=== PATIENT | male | born 1940 | race Caucasian/White ===

== ENCOUNTER 2017-04-03 17:01 | Inpatient (IN) | payer MEDICARE, OTHER ==
[2017-04-03] MEDS: PANTOPRAZOLE 40 MG INJ IV (17:39)
[2017-04-03] MEDS: ONDANSETRON 4 MG INJ IV ×2 (17:39→23:07)
[2017-04-03 17:44] LABS: ADD MAN DIFF? NO
[2017-04-03 17:47] LABS: WHITE BLOOD COUNT 12.1 10^3/ul (4.8-10.8)
[2017-04-03 17:47] LABS: BASOPHILS % 0.3 % (0.0-2.0); EOSINOPHILS % 0.2 % (0.0-7.0); HEMATOCRIT 33.9 % (42.0-52.0); HEMOGLOBIN 11.1 g/dl (14.0-18.0); LYMPHOCYTES # 2.8 10^3/ul (0.8-2.9); LYMPHOCYTES % 23.3 % (15.0-51.0); MEAN CORPUSCULAR HEMOGLOBIN 28.7 pg (29.0-33.0); MEAN CORPUSCULAR HGB CONC 32.7 g/dl (32.0-37.0); MEAN CORPUSCULAR VOLUME 87.6 fl (82.0-101.0); MONOCYTE # 0.7 10^3/ul (0.3-0.9); MONOCYTES % 6.1 % (0.0-11.0); NEUTROPHIL # 8.4 10^3/ul (1.6-7.5); NEUTROPHILS % 69.5 % (39.0-77.0); PLATELET COUNT 242 10^3/UL (140-415); RED BLOOD COUNT 3.87 10^6/ul (4.70-6.10); RED CELL DISTRIBUTION WIDTH 12.8 % (11.5-14.5)
[2017-04-03 18:06] LABS: INR 1.07; PT RATIO 1.1
[2017-04-03 18:07] LABS: PARTIAL THROMBOPLASTIN TIME 28.7 Sec (25.0-35.0)
[2017-04-03 18:08] LABS: ALANINE AMINOTRANSFERASE 34 IU/L (13-69); ALBUMIN 3.5 g/dl (3.3-4.9); ALBUMIN/GLOBULIN RATIO 1.34; ALKALINE PHOSPHATASE 41 IU/L (42-121); ANION GAP 18 (8-16); ASPARTATE AMINO TRANSFERASE 18 IU/L (15-46); BILIRUBIN,INDIRECT 0.2 mg/dl (0-1.1); BILIRUBIN,TOTAL 0.2 mg/dl (0.2-1.3); BLOOD UREA NITROGEN 39 mg/dl (7-20); CALCIUM 8.7 mg/dl (8.4-10.2); CARBON DIOXIDE 24 mmol/L (21-31); CHLORIDE 101 mmol/L (97-110); CREATININE 0.83 mg/dl (0.61-1.24); GLUCOSE 252 mg/dl (70-220); POTASSIUM 4.7 mmol/L (3.5-5.1); SODIUM 138 mmol/L (135-144); TOTAL PROTEIN 6.1 g/dl (6.1-8.1)
[2017-04-03 18:20] LABS: TROPONIN-I < 0.012 ng/ml (0.00-0.12)
[2017-04-03] MEDS: SOD CHLORIDE 0.9% 1,000 ML IV ×2 (18:29→22:41)
[2017-04-03] MEDS: morphine 2 MG INJ IV (21:30)
[2017-04-03 21:48] LABS: HEMATOCRIT 23.5 % (42.0-52.0); HEMOGLOBIN 8.1 g/dl (14.0-18.0)
[2017-04-03] MEDS: IOHEXOL 300MG/ML 150 ML BTL (22:36)
[2017-04-03] MEDS: SOD CHLORIDE 0.9% 100 ML (22:36)
[2017-04-03] MEDS: PANTOPRAZOLE IV 80 MG in SOD CHLORIDE 0.9% 100 ML IVPB (22:42)
[2017-04-03 22:43] LABS: HEMATOCRIT 23.1 % (42.0-52.0); HEMOGLOBIN 7.6 g/dl (14.0-18.0)
[2017-04-03] MEDS ORDERED: ALBUTEROL/IPRATROPIUM (NEB) 3 ML AMP NEB (23:00)
[2017-04-03] MEDS ORDERED: ONDANSETRON 4 MG INJ IV (23:00)
[2017-04-03] MEDS: PANTOPRAZOLE IV 80 MG in SOD CHLORIDE 0.9% 100 ML IV (23:02)
[2017-04-03] MEDS: HYDROmorphONE 0.5 MG/0.5 ML SYG IV (23:07)
[2017-04-03 23:47] LABS: ADD MAN DIFF? NO
[2017-04-03 23:50] LABS: WHITE BLOOD COUNT 15.2 10^3/ul (4.8-10.8)
[2017-04-03 23:50] LABS: BASOPHILS % 0.1 % (0.0-2.0); HEMATOCRIT 23.7 % (42.0-52.0); LYMPHOCYTES # 2.6 10^3/ul (0.8-2.9); LYMPHOCYTES % 16.8 % (15.0-51.0); MEAN CORPUSCULAR HEMOGLOBIN 29.7 pg (29.0-33.0); MEAN CORPUSCULAR HGB CONC 33.8 g/dl (32.0-37.0); MEAN CORPUSCULAR VOLUME 88.1 fl (82.0-101.0); MEAN PLATELET VOLUME 10.1 fl (7.4-10.4); MONOCYTE # 0.9 10^3/ul (0.3-0.9); MONOCYTES % 5.7 % (0.0-11.0); NEUTROPHIL # 11.6 10^3/ul (1.6-7.5); NEUTROPHILS % 76.7 % (39.0-77.0); PLATELET COUNT 221 10^3/UL (140-415); RED BLOOD COUNT 2.69 10^6/ul (4.70-6.10)
[2017-04-04 00:24] LABS: INR 1.23; PROTIME 15.7 Sec (11.9-14.9); PT RATIO 1.2
[2017-04-04 00:25] LABS: PARTIAL THROMBOPLASTIN TIME 30.1 Sec (25.0-35.0)
[2017-04-04] MEDS: SOD CHLORIDE 0.9% 1,000 ML IV ×2 (01:01→06:55)
[2017-04-04] MEDS ORDERED: METOCLOPRAMIDE 10 MG INJ IV (01:30)
[2017-04-04 02:27] LABS: HEMATOCRIT 28.8 % (42.0-52.0); HEMOGLOBIN 9.4 g/dl (14.0-18.0)
[2017-04-04 04:13] LABS: HEMATOCRIT 25.4 % (42.0-52.0); HEMOGLOBIN 8.8 g/dl (14.0-18.0)
[2017-04-04 04:42] LABS: LACTIC ACID 3.6 mmol/L (0.5-2.0)
[2017-04-04] MEDS ORDERED: GLUCOSE GEL 15 GRAM TUBE PO ×2 (05:00)
[2017-04-04] MEDS ORDERED: DEXTROSE 50% 50 ML SYRINGE IV ×2 (05:00)
[2017-04-04] MEDS ORDERED: GLUCOSE GEL 15 GRAM TUBE BUCCAL (05:00)
[2017-04-04] MEDS ORDERED: GLUCAGON 1 MG INJ IM (05:00)
[2017-04-04] MEDS: INSULIN ASPART [NOVOLOG] 3 ML PEN SC ×6 (05:15→20:36)
[2017-04-04] MEDS: PHYTONADIONE 10 MG/ML INJ IM (05:17)
[2017-04-04 07:16] LABS: WHITE BLOOD COUNT 27.1 10^3/ul (4.8-10.8)
[2017-04-04 07:16] LABS: ABNORMAL IP MESSAGE 1; HEMATOCRIT 24.4 % (42.0-52.0); HEMOGLOBIN 8.2 g/dl (14.0-18.0); MEAN CORPUSCULAR HEMOGLOBIN 29.3 pg (29.0-33.0); MEAN CORPUSCULAR HGB CONC 33.6 g/dl (32.0-37.0); MEAN CORPUSCULAR VOLUME 87.1 fl (82.0-101.0); PLATELET COUNT 200 10^3/UL (140-415); POSITIVE DIFF @See below; RED CELL DISTRIBUTION WIDTH 14.4 % (11.5-14.5)
[2017-04-04 07:19] LABS: ADD MAN DIFF? YES
[2017-04-04 07:43] LABS: INR 1.22; PARTIAL THROMBOPLASTIN TIME 28.5 Sec (25.0-35.0); PROTIME 15.6 Sec (11.9-14.9); PT RATIO 1.2
[2017-04-04 07:58] LABS: LACTIC ACID 4.5 mmol/L (0.5-2.0)
[2017-04-04 08:23] LABS: ANISOCYTOSIS 1+ (0-0); BAND NEUTROPHILS #M 2.1 10^3/ul (0.0-0.6); BAND NEUTROPHILS % (M) 8 % (0-4); BURR CELLS 1+ (0-0); LYMPHOCYTES #M 2.1 10^3/ul (0.8-2.9); LYMPHOCYTES % (M) 8 % (15-51); MICROCYTOSIS 1+ (0-0); MONOCYTE #M 2.1 10^3/ul (0.3-0.9); MONOCYTES % (M) 8 % (0-11); PLATELET ESTIMATE NORMAL; POIKILOCYTOSIS 1+ (0-0); SEG NEUT #M 21.2 10^3/ul (1.7-7.5); SEGMENTED NEUTROPHILS (M) % 76 % (39-77); SMUDGE%M 10 % (0-0)
[2017-04-04] MEDS: PANTOPRAZOLE IV 80 MG in SOD CHLORIDE 0.9% 100 ML IV ×3 (08:37→19:02)
[2017-04-04 10:54] LABS: ADD UMIC NO; UR ASCORBIC ACID NEGATIVE (NEGATIVE); UR BILIRUBIN (Dip) NEGATIVE (NEGATIVE); UR BLOOD (Dip) NEGATIVE (NEGATIVE); UR CLARITY CLEAR (CLEAR); UR COLOR YELLOW (YELLOW); UR GLUCOSE (Dip) 3+ mg/dL (NEGATIVE); UR KETONES (Dip) TRACE mg/dL (NEGATIVE); UR LEUKOCYTE ESTERASE (Dip) NEGATIVE Leu/ul (NEGATIVE); UR NITRITE (Dip) NEGATIVE (NEGATIVE); UR SPECIFIC GRAVITY (Dip) 1.044 (1.003-1.030); UR TOTAL PROTEIN (Dip) NEGATIVE (NEGATIVE); UR UROBILINOGEN (Dip) NEGATIVE (NEGATIVE)
[2017-04-04 11:11] LABS: HEMOGLOBIN 6.8 g/dl (14.0-18.0)
[2017-04-04 11:26] LABS: LACTIC ACID 6.3 mmol/L (0.5-2.0)
[2017-04-04] MEDS: morphine 2 MG INJ IV (12:07)
[2017-04-04] MEDS: INSULIN GLARGINE [LANtus] 3 ML PEN SC (14:07)
[2017-04-04 18:59] LABS: HEMATOCRIT 25.2 % (42.0-52.0); HEMOGLOBIN 8.9 g/dl (14.0-18.0)
[2017-04-04] MEDS: FENTAnyl 50 MCG/ML VIAL (20:11)
[2017-04-04] MEDS: MIDAZOLAM 1 MG/ML 2 ML INJ (20:11)
[2017-04-04] MEDS: ETOMIDATE 20 MG INJ (20:12)
[2017-04-04] MEDS: METOCLOPRAMIDE 10 MG INJ IV ×2 (21:37→23:48)
[2017-04-04 22:24] LABS: HEMATOCRIT 23.9 % (42.0-52.0); HEMOGLOBIN 8.2 g/dl (14.0-18.0)
[2017-04-05] MEDS: INSULIN ASPART [NOVOLOG] 3 ML PEN SC ×6 (01:19→23:01)
[2017-04-05 01:49] LABS: PHOSPHORUS 3.5 mg/dl (2.5-4.9)
[2017-04-05] MEDS: ACCU-CHEK XX (02:04)
[2017-04-05] MEDS: SOD CHLORIDE 0.9% 1,000 ML IV ×2 (02:07→23:04)
[2017-04-05 06:13] LABS: HEMATOCRIT 19.1 % (42.0-52.0)
[2017-04-05] MEDS: PANTOPRAZOLE IV 80 MG in SOD CHLORIDE 0.9% 100 ML IV ×3 (06:31→23:04)
[2017-04-05 06:37] LABS: MAGNESIUM 1.7 mg/dl (1.7-2.5)
[2017-04-05] MEDS: METOCLOPRAMIDE 10 MG INJ IV ×3 (07:03→18:17)
[2017-04-05 07:16] LABS: HEMOGLOBIN 6.8 g/dl (14.0-18.0)
[2017-04-05 07:56] LABS: IMMEDIATE SPIN CROSSMATCH 1 5
[2017-04-05 11:39] LABS: IMMEDIATE SPIN CROSSMATCH 1 4
[2017-04-05 13:44] LABS: TYPE AND SCREEN 1
[2017-04-05] MEDS: FUROSEMIDE 20 MG INJ IV (18:17)
[2017-04-05 19:07] LABS: ABNORMAL IP MESSAGE 1; HEMATOCRIT 25.3 % (42.0-52.0); HEMOGLOBIN 8.8 g/dl (14.0-18.0); MEAN CORPUSCULAR HEMOGLOBIN 30.2 pg (29.0-33.0); MEAN CORPUSCULAR HGB CONC 34.8 g/dl (32.0-37.0); MEAN CORPUSCULAR VOLUME 86.9 fl (82.0-101.0); MEAN PLATELET VOLUME 9.8 fl (7.4-10.4); NUCLEATED RED BLOOD CELLS% 0.4 /100WBC (0.0-0.0); PLATELET COUNT 80 10^3/UL (140-415); POSITIVE DIFF @See below; RED BLOOD COUNT 2.91 10^6/ul (4.70-6.10); RED CELL DISTRIBUTION WIDTH 14.4 % (11.5-14.5)
[2017-04-05 19:24] LABS: ANION GAP 8 (8-16); BLOOD UREA NITROGEN 39 mg/dl (7-20); CALCIUM 7.5 mg/dl (8.4-10.2); CARBON DIOXIDE 25 mmol/L (21-31); CHLORIDE 109 mmol/L (97-110); CREATININE 0.91 mg/dl (0.61-1.24); GLUCOSE 113 mg/dl (70-220); MAGNESIUM 1.7 mg/dl (1.7-2.5); PHOSPHORUS 2.2 mg/dl (2.5-4.9); POTASSIUM 3.2 mmol/L (3.5-5.1); SODIUM 139 mmol/L (135-144)
[2017-04-05 19:30] LABS: ADD MAN DIFF? YES
[2017-04-05 19:39] LABS: BASOPHIL #M 0.1 10^3/ul (0.0-0.0); BASOPHILS % (M) 1 % (0-2); GIANT THROMBO% (M) 1 % (0-0); LYMPHOCYTES #M 0.6 10^3/ul (0.8-2.9); LYMPHOCYTES % (M) 5 % (15-51); MICROCYTOSIS 1+ (0-0); MONOCYTE #M 0.4 10^3/ul (0.3-0.9); MONOCYTES % (M) 4 % (0-11); PLATELET MORPHOLOGY COMMENT @See below; SEGMENTED NEUTROPHILS (M) % 90 % (39-77)
[2017-04-05] MEDS: POTASSIUM CHLORIDE (SR) 20 MEQ TAB PO (21:11)
[2017-04-05] MEDS: MAGNESIUM SULFATE 2 GM/50 ML 50 ML IVPB (22:32)
[2017-04-05] MEDS: CALCIUM GLUCONATE 10% 1 GM in DEXTROSE 5% 100 ML IVPB (22:32)
[2017-04-05] MEDS: POTASSIUM PHOSPHATE 15 MM in SOD CHLORIDE 0.9% 250 ML IVPB (22:33)
[2017-04-05 23:18] LABS: HEMATOCRIT 24.9 % (42.0-52.0); HEMOGLOBIN 8.9 g/dl (14.0-18.0)
[2017-04-06] MEDS: POTASSIUM CHLORIDE (SR) 20 MEQ TAB PO (00:30)
[2017-04-06] MEDS: INSULIN ASPART [NOVOLOG] 3 ML PEN SC ×5 (01:00→17:00)
[2017-04-06] MEDS: ACCU-CHEK XX (02:00)
[2017-04-06] MEDS: METOCLOPRAMIDE 10 MG INJ IV ×4 (04:02→20:33)
[2017-04-06 04:05] LABS: ADD MAN DIFF? NO
[2017-04-06 04:10] LABS: WHITE BLOOD COUNT 10.9 10^3/ul (4.8-10.8)
[2017-04-06 04:10] LABS: ABNORMAL IP MESSAGE 1; BASOPHIL # 0.1 10^3/ul (0.0-0.1); BASOPHILS % 0.6 % (0.0-2.0); EOSINOPHILS # 0.4 10^3/ul (0.0-0.5); EOSINOPHILS % 3.6 % (0.0-7.0); HEMATOCRIT 24.3 % (42.0-52.0); HEMOGLOBIN 8.5 g/dl (14.0-18.0); LYMPHOCYTES # 1.9 10^3/ul (0.8-2.9); LYMPHOCYTES % 17.4 % (15.0-51.0); MEAN CORPUSCULAR HEMOGLOBIN 30.4 pg (29.0-33.0); MEAN CORPUSCULAR VOLUME 86.8 fl (82.0-101.0); MEAN PLATELET VOLUME 9.9 fl (7.4-10.4); MONOCYTES % 9.4 % (0.0-11.0); NEUTROPHIL # 7.3 10^3/ul (1.6-7.5); NEUTROPHILS % 66.9 % (39.0-77.0); NUCLEATED RED BLOOD CELLS # 0.1 10^3/ul (0.0-0.0); NUCLEATED RED BLOOD CELLS% 0.6 /100WBC (0.0-0.0); PLATELET COUNT 93 10^3/UL (140-415); POSITIVE DIFF @See below; RED CELL DISTRIBUTION WIDTH 14.5 % (11.5-14.5)
[2017-04-06 04:28] LABS: INR 1.07; PT RATIO 1.1
[2017-04-06 04:29] LABS: PARTIAL THROMBOPLASTIN TIME 28.6 Sec (25.0-35.0)
[2017-04-06 04:32] LABS: ALANINE AMINOTRANSFERASE 36 IU/L (13-69); ALBUMIN 2.5 g/dl (3.3-4.9); ALKALINE PHOSPHATASE 39 IU/L (42-121); ANION GAP 11 (8-16); ASPARTATE AMINO TRANSFERASE 25 IU/L (15-46); BILIRUBIN,INDIRECT 0.4 mg/dl (0-1.1); BILIRUBIN,TOTAL 0.4 mg/dl (0.2-1.3); BLOOD UREA NITROGEN 23 mg/dl (7-20); CALCIUM 7.6 mg/dl (8.4-10.2); CARBON DIOXIDE 30 mmol/L (21-31); CHLORIDE 105 mmol/L (97-110); CREATININE 0.84 mg/dl (0.61-1.24); GLUCOSE 118 mg/dl (70-220); MAGNESIUM 2.2 mg/dl (1.7-2.5); POTASSIUM 3.6 mmol/L (3.5-5.1); SODIUM 142 mmol/L (135-144); TOTAL PROTEIN 4.7 g/dl (6.1-8.1)
[2017-04-06] MEDS: CALCIUM GLUCONATE 10% 1 GM in DEXTROSE 5% 100 ML IVPB (06:10)
[2017-04-06] MEDS ORDERED: METOPROLOL 25 MG TAB PO (08:00)
[2017-04-06] MEDS: PANTOPRAZOLE IV 80 MG in SOD CHLORIDE 0.9% 100 ML IV (10:33)
[2017-04-06] MEDS ORDERED: PANTOPRAZOLE 40 MG INJ IV (17:00)
[2017-04-06] MEDS: PANTOPRAZOLE 40 MG INJ IV (20:38)
[2017-04-06] MEDS: Insulin NOVOLOG SS MODERATE Algorithm (SS with meals and bedtime) SC (20:38)
[2017-04-06] MEDS ORDERED: INSULIN ASPART [NOVOLOG] 3 ML PEN SC (21:00)
[2017-04-07] MEDS: METOCLOPRAMIDE 10 MG INJ IV ×4 (00:45→18:50)
[2017-04-07] MEDS: ACCU-CHEK XX (01:13)
[2017-04-07] MEDS: ACCUCHECK 2 AM XX (01:13)
[2017-04-07] MEDS: PANTOPRAZOLE 40 MG INJ IV ×2 (05:48→18:50)
[2017-04-07 06:46] LABS: ADD MAN DIFF? NO
[2017-04-07 06:50] LABS: ABNORMAL IP MESSAGE 1; BASOPHILS % 0.4 % (0.0-2.0); EOSINOPHILS # 0.5 10^3/ul (0.0-0.5); EOSINOPHILS % 4.9 % (0.0-7.0); HEMATOCRIT 27.6 % (42.0-52.0); HEMOGLOBIN 9.5 g/dl (14.0-18.0); LYMPHOCYTES # 1.8 10^3/ul (0.8-2.9); LYMPHOCYTES % 19.8 % (15.0-51.0); MEAN CORPUSCULAR HEMOGLOBIN 30.4 pg (29.0-33.0); MEAN CORPUSCULAR HGB CONC 34.4 g/dl (32.0-37.0); MEAN CORPUSCULAR VOLUME 88.5 fl (82.0-101.0); MEAN PLATELET VOLUME 9.6 fl (7.4-10.4); MONOCYTE # 1.2 10^3/ul (0.3-0.9); MONOCYTES % 12.8 % (0.0-11.0); NEUTROPHIL # 5.5 10^3/ul (1.6-7.5); NEUTROPHILS % 60.5 % (39.0-77.0); PLATELET COUNT 99 10^3/UL (140-415); POSITIVE DIFF @See below; RED BLOOD COUNT 3.12 10^6/ul (4.70-6.10); RED CELL DISTRIBUTION WIDTH 13.8 % (11.5-14.5)
[2017-04-07 06:50] LABS: WHITE BLOOD COUNT 9.2 10^3/ul (4.8-10.8)
[2017-04-07 07:25] LABS: ANION GAP 9 (8-16); BLOOD UREA NITROGEN 14 mg/dl (7-20); CALCIUM 8.5 mg/dl (8.4-10.2); CARBON DIOXIDE 34 mmol/L (21-31); CHLORIDE 98 mmol/L (97-110); CREATININE 0.75 mg/dl (0.61-1.24); GLUCOSE 140 mg/dl (70-220); POTASSIUM 3.6 mmol/L (3.5-5.1); SODIUM 137 mmol/L (135-144)
[2017-04-07] MEDS: Insulin NOVOLOG SS MODERATE Algorithm (SS with meals and bedtime) SC ×3 (08:49→17:55)
== END 2017-04-07 20:17 | disposition home health service (06) | DRG 368 ==
LOC: ICU 22:44 → MS4 04-06 12:04 → E/R 17:01 → TEL 04-06 18:50
PROC: 0DJ08ZZ Inspection of Upper Intestinal Tract, Via Natural or Artificial Opening Endoscopic (ICD-10-PCS; principal; 2017-04-04 19:00)
PROC: 30233K1 Transfusion of Nonautologous Frozen Plasma into Peripheral Vein, Percutaneous Approach (ICD-10-PCS; 2017-04-04 19:00)
PROC: 30233N1 Transfusion of Nonautologous Red Blood Cells into Peripheral Vein, Percutaneous Approach (ICD-10-PCS; 2017-04-04 19:00)
PROC: 30233R1 Transfusion of Nonautologous Platelets into Peripheral Vein, Percutaneous Approach (ICD-10-PCS; 2017-04-04 19:00)
DX: K22.6 Gastro-esophageal laceration-hemorrhage syndrome (principal); R57.8 Other shock; K22.11 Ulcer of esophagus with bleeding; E11.9 Type 2 diabetes mellitus without complications; I10 Essential (primary) hypertension; D50.0 Iron deficiency anemia secondary to blood loss (chronic); E78.5 Hyperlipidemia, unspecified; Z95.2 Presence of prosthetic heart valve; K29.70 Gastritis, unspecified, without bleeding; K62.5 Hemorrhage of anus and rectum
CPT/HCPCS: 36415; 36430; 71045; 71260; 74177; 78278; 80048; 80053; 80076; 81003; 82962; 83605; 83735; 84100; 84484; 85014; 85018; 85025; 85610; 85730; 86850; 86900; 86901; 86920; 87081; 87086; 93005; 96365; 96366; 96375; 96376; 97163; 99291-25